=== PATIENT | male | born 1945 | race Caucasian/White ===

== ENCOUNTER 2017-11-18 20:47 | Inpatient (IN) | payer OTHER ==
[~2017-11-18] VITALS: Ht 167.6 cm; Wt 92.0 kg
[2017-11-18 22:59] LABS: Basophils # (auto) 0 uL; Basophils % (auto) 0.2 % (0.0-2.0); Eosinophils # (auto) 0 uL; Eosinophils % (auto) 0.6 % (0.0-7.0); Hematocrit 28.8 % (41.0-53.0); Lymphocytes # (auto) 0.8 uL; Lymphocytes % (auto) 18.7 % (10.0-50.0); Mean Corpuscular Hemoglobin 33.6 pg (28.0-32.0); Mean Corpuscular Hgb Conc. 34.7 g/dL (32.0-36.0); Mean Corpuscular Volume 96.8 fL (80.0-100.0); Monocytes # (auto) 0.4 uL; Monocytes % (auto) 8.6 % (0.0-12.0); Neutrophils # (auto) 3.1 uL; Neutrophils % (auto) 71.9 % (37.0-80.0); Nucleated Red Blood Cells % 0.1 %; Platelet Count (auto) 66 10^3/uL (140-450); Red Blood Cells 2.97 10^6/uL (4.5-5.90); Red Cell Distribution Width 15.8 % (11.8-14.3); White Blood Cell 4.3 10^3/uL (4.4-10.8)
[2017-11-18 23:19] LABS: Alanine Aminotransferase 22 U/L (16-61); Anion Gap 7 (5-15); Aspartate Aminotransferase 15 U/L (15-37); BUN/Creatinine Ratio 15.1; Blood Urea Nitrogen 42 mg/dL (7-18); Calcium 8.8 mg/dL (8.5-10.1); Carbon Dioxide 26 mmol/L (21-32); Chloride 105 mmol/L (98-107); GFR African American 29 mL/min; GFR Non-African American 24 mL/min; Glucose 61 mg/dL (74-106); Potassium 4.2 mmol/L (3.5-5.1); Sodium 138 mmol/L (136-145)
[2017-11-18 23:34] LABS: Alkaline Phosphatase 88 U/L (45-117); Bilirubin, Total 0.3 mg/dL (0.2-1.0); Total Protein 7.6 g/dL (6.4-8.2)
[2017-11-19] MEDS ORDERED: DEXTROSE (50%) 50ML SYRG IV ONE (00:30)
[2017-11-19 02:22] LABS: Urine Bacteria NONE SEEN /hpf (None Seen); Urine Blood Negative /uL (Negative); Urine Hyaline Cast FEW /lpf (0 - 2); Urine Specific Gravity 1.008 (1.001-1.035); Urine WBC 1 /hpf (0 - 3)
[2017-11-19] MEDS ORDERED: DEXTROSE 10% 1,000 ML IV ONE ×2 (02:57→03:00)
[2017-11-19] MEDS ORDERED: ACETAMINOPHEN 325 MG TAB PO PRN (06:30)
[2017-11-19] MEDS ORDERED: DEXTROSE 10% 1,000 ML IV SCH (06:30)
[2017-11-19] MEDS ORDERED: MORPHINE SULFATE 4 MG/ML SYR/VIAL IV PRN (06:30)
[2017-11-19] MEDS ORDERED: SODIUM CHLORIDE 0.9% 500 ML IV ONE (06:30)
[2017-11-19] MEDS ORDERED: HYDROcodone-ACET 5/325MG TAB PO PRN (06:30)
[2017-11-19] MEDS ORDERED: ONDANSETRON HCL 4 MG/2 ML VIAL IV PRN (06:30)
[2017-11-19] MEDS: metroNIDAZOLE 500MG/100ML 100 ML IV SCH ×2 (06:30→14:12)
[2017-11-19] MEDS ORDERED: NITROGLYCERIN 0.4 MG SL TAB SL PRN (06:30)
[2017-11-19 07:50] VITALS: BP 125/59
[2017-11-19 08:07] VITALS: BP 125/59
[2017-11-19] MEDS ORDERED: TRAZ50TA2 PO (08:29)
[2017-11-19] MEDS ORDERED: METH750T3 PO (08:29)
[2017-11-19] MEDS ORDERED: GABA-339 PO (08:29)
[2017-11-19] MEDS ORDERED: LATA0.0015 EACHEYE (08:29)
[2017-11-19] MEDS ORDERED: METO-158 PO (08:29)
[2017-11-19] MEDS ORDERED: RANO1000 PO (08:29)
[2017-11-19] MEDS ORDERED: MULTTAB61 PO (08:29)
[2017-11-19] MEDS ORDERED: AML5T PO (08:29)
[2017-11-19] MEDS ORDERED: TRAM50TA2 PO (08:29)
[2017-11-19] MEDS ORDERED: CHOL20007 PO (08:29)
[2017-11-19] MEDS ORDERED: LEVO150T10 PO (08:29)
[2017-11-19] MEDS ORDERED: TIMO0.5S49 EACHEYE (08:29)
[2017-11-19] MEDS ORDERED: BRIM0.159 OP (08:29)
[2017-11-19] MEDS ORDERED: GLIP-116 PO (08:29)
[2017-11-19] MEDS ORDERED: ISOS60TA24 PO (08:29)
[2017-11-19] MEDS ORDERED: RANI150C11 PO (08:29)
[2017-11-19] MEDS ORDERED: NIAC500T71 PO (08:29)
[2017-11-19] MEDS ORDERED: SERT-274 PO (08:29)
[2017-11-19] MEDS ORDERED: MECL12.554 PO (08:29)
[2017-11-19] MEDS ORDERED: ATOR20TA50 PO (08:29)
[2017-11-19] MEDS ORDERED: ARTISOL13 EACHEYE (08:29)
[2017-11-19] MEDS ORDERED: INSUINJ2 SC (08:29)
[2017-11-19] MEDS ORDERED: NITR0.4S29 SL (08:29)
[2017-11-19 09:00] VITALS: BP 125/59
[2017-11-19] MEDS ORDERED: ENOXAPARIN SOD 30 MG/0.3 ML SYRINGE SC SCH (10:00)
[2017-11-19] MEDS ORDERED: PANTOPRAZOLE 40 MG/10 ML VIAL IV SCH (10:00)
[2017-11-19 13:00] VITALS: BP 105/52
[2017-11-19 14:00] LABS: Basophils # (auto) 0 uL; Basophils % (auto) 0.2 % (0.0-2.0); Eosinophils # (auto) 0 uL; Hemoglobin 9.8 g/dL (13.5-17.5); Lymphocytes # (auto) 0.7 uL; Mean Corpuscular Hgb Conc. 35.3 g/dL (32.0-36.0); Monocytes # (auto) 0.3 uL; Neutrophils # (auto) 2.1 uL; Neutrophils % (auto) 67.8 % (37.0-80.0); Red Cell Distribution Width 15.8 % (11.8-14.3); White Blood Cell 3.1 10^3/uL (4.4-10.8)
[2017-11-19 14:02] LABS: Eosinophils % (auto) 0.8 % (0.0-7.0); Hematocrit 27.7 % (41.0-53.0); Lymphocytes % (auto) 22.7 % (10.0-50.0); Mean Corpuscular Hemoglobin 34.2 pg (28.0-32.0); Monocytes % (auto) 8.5 % (0.0-12.0); Nucleated Red Blood Cells % 0.2 %; Platelet Count (auto) 62 10^3/uL (140-450); Red Blood Cells 2.86 10^6/uL (4.5-5.90)
[2017-11-19 14:26] LABS: BUN/Creatinine Ratio 17.6; Calcium 8.8 mg/dL (8.5-10.1); Potassium 4.8 mmol/L (3.5-5.1)
[2017-11-19] MEDS ORDERED: METR500T PO (14:57)
[2017-11-19 17:00] VITALS: BP 109/63
== END 2017-11-19 19:30 | disposition home or self-care (01) | DRG 391 ==
LOC: EDBD 20:47 → ER 20:52 → TELE 20:53 → TELE-CENTR 11-19 07:40
PROVIDERS: ADMIT Nurse Practitioner; ATTEND Internal Medicine
DX: R19.7 Diarrhea, unspecified (principal); N17.0 Acute kidney failure with tubular necrosis; D69.6 Thrombocytopenia, unspecified; E11.22 Type 2 diabetes mellitus with diabetic chronic kidney disease; E11.40 Type 2 diabetes mellitus with diabetic neuropathy, unspecified; E11.649 Type 2 diabetes mellitus with hypoglycemia without coma; N18.3 Chronic kidney disease, stage 3 (moderate); E86.0 Dehydration; E66.01 Morbid (severe) obesity due to excess calories; E78.5 Hyperlipidemia, unspecified; H40.9 Unspecified glaucoma; I25.10 Atherosclerotic heart disease of native coronary artery without angina pectoris; F51.04 Psychophysiologic insomnia; E03.9 Hypothyroidism, unspecified; K21.9 Gastro-esophageal reflux disease without esophagitis; I12.9 Hypertensive chronic kidney disease with stage 1 through stage 4 chronic kidney disease, or unspecified chronic kidney disease; I25.119 Atherosclerotic heart disease of native coronary artery with unspecified angina pectoris; Z86.73 Personal history of transient ischemic attack (TIA), and cerebral infarction without residual deficits; Z95.1 Presence of aortocoronary bypass graft; Z88.0 Allergy status to penicillin; Z88.1 Allergy status to other antibiotic agents; Z68.32 Body mass index [BMI] 32.0-32.9, adult; I25.2 Old myocardial infarction
CPT/HCPCS: 36415; 71045; 80048; 80053; 81001; 82962; 83735; 84484; 85025; 87493; 93005; 96361; 96374; C9113; J3490